=== PATIENT | female | born 1990 | race Caucasian/White ===

== ENCOUNTER 2018-05-05 18:50 | Emergency (ER) | payer BC, OTHER ==
[2018-05-05] MEDS: DEXAMETHASONE 10 MG/ML 1 ML INJ IM ×2 (23:34→23:36)
[2018-05-05] MEDS: ALBUTEROL 0.083% (NEB) 2.5 MG/3 ML AMP NEB (23:52)
[2018-05-05] MEDS: IPRATROPIUM (NEB) 0.5 MG/2.5 ML AMP NEB (23:52)
[2018-05-05] MEDS: predniSONE 20 MG TAB PO (23:59)
== END 2018-05-06 01:11 | disposition home or self-care (01) ==
LOC: FTE 05-06 01:11
DX: J06.9 Acute upper respiratory infection, unspecified (principal); J45.909 Unspecified asthma, uncomplicated
CPT/HCPCS: 71045; 94644; 99283-25